=== PATIENT | female | born 1970 | race African-American/Black ===

== ENCOUNTER 2019-02-05 23:42 | Emergency (ER) | payer OTHER ==
[2019-02-05 23:51] VITALS: BMI 25.7
--- NOTE | 2019-02-06 00:01 | PDOC ---
History of Present Illness - General Chief Complaint: Blood Pressure Problem Stated Complaint: HYPERTENSION, BLURRED VISION Time Seen by Provider: 02/05/19 23:55 - History of Present Illness Initial Comments: 02/06/19 00:00 48 yo F with no significant pmh who p/w headache and congestion. Patient reports onset of dull, non radiating, persistent, pressure, bi-frontal headache , asx. with photphobia and visual disturbances beginning 02-02-19. No identifiable alleviators. Attempted OTC Iburporfen x 1. 1 episode of NBNB emesis yesterday following PO Motrin. Also endorses nasal congestion, non productive cough, subjective fevers, and diffuse chest pressure, with no identifiable alleviators beginning 02-02-19. Recently returned from [place] . Patient denies neck stiffness, palpitations,wheezing, orthopena, PND, leg swelling/pain, N/V, F,C, SOB, urinary complaints, hematuria, BPR, abdominal pain, diarrhea, constipation, lightheadedness, weakness, sensory changes. PMHx: as noted above ROS: as noted SHx: Denies Etoh, IVDA, tobacco use Allergies: NKDA Past History - Past Medical History Allergies/Adverse Reactions: Allergies Allergy/AdvReac Type Severity Reaction Status Date / Time No Known Allergies Allergy Verified 02/05/19 23:50 Home Medications: Ambulatory Orders Gabapentin 300 mg PO TID 02/06/19 - Suicide/Smoking/Psychosocial Hx Smoking History: Never smoked Have you smoked in the past 12 months: No Information on smoking cessation initiated: No Hx Alcohol Use: No Drug/Substance Use Hx: No Review of Systems - Review of Systems Comments:: 02/06/19 00:00 GENERAL/CONSTITUTIONAL: No fever or chills. No weakness. HEAD, EYES, EARS, NOSE AND THROAT: + change in vision. No ear pain or discharge. No sore throat. CARDIOVASCULAR:+chest pain. No shortness of breath RESPIRATORY: +cough. no wheezing, or hemoptysis. GASTROINTESTINAL: No nausea, vomiting, diarrhea or constipation. GENITOURINARY: No dysuria, frequency, or change in urination. MUSCULOSKELETAL: No joint or muscle swelling or pain. No neck or back pain. SKIN: No rash NEUROLOGIC: +headache. No vertigo, loss of consciousness, or change in strength/ sensation. ENDOCRINE: No increased thirst. No abnormal weight change HEMATOLOGIC/LYMPHATIC: No anemia, easy bleeding, or history of blood clots. ALLERGIC/IMMUNOLOGIC: No hives or skin allergy. *Physical Exam - Vital Signs Last Vital Signs Temp Pulse Resp BP Pulse Ox 111 H 20 182/100 H 98 02/05/19 23:50 02/05/19 23:50 02/05/19 23:50 02/05/19 23:50 - Physical Exam Comments: 02/06/19 00:00 GENERAL: Awake, alert, and fully oriented, in no acute distress HEAD: No signs of trauma, normocephalic, atraumatic EYES: PERRLA, EOMI, sclera anicteric, conjunctiva clear ENT: Auricles normal inspection, hearing grossly normal, nares patent, oropharynx clear without exudates. Moist mucosa NECK: Normal ROM, supple, no lymphadenopathy, JVD, or masses LUNGS: No distress, speaks full sentences, clear to auscultation bilaterally HEART: Regular rate and rhythm, normal S1 and S2, no murmurs, rubs or gallops, peripheral pulses normal and equal bilaterally. ABDOMEN: Soft, nontender, normoactive bowel sounds. No guarding, no rebound. No masses EXTREMITIES : Normal inspection, Normal range of motion, no edema. No clubbing or cyanosis. NEUROLOGICAL: Cranial nerves II through XII grossly intact. Normal speech, normal gait, no focal sensorimotor deficits SKIN: Warm, Dry, normal turgor, no rashes or lesions noted Moderate Sedation - Procedure Monitoring Vital Signs: Procedure Monitoring Vital Signs Temperature Pulse Rate 111 H 02/05/19 23:50 Respiratory Rate 20 02/05/19 23:50 Blood Pressure 182/100 H 02/05/19 23:50 O2 Sat by Pulse Oximetry (%) 98 02/05/19 23:50 ED Treatment Course - LABORATORY CBC & Chemistry Diagram: 02/06/19 00:42 02/06/19 00:42 - RADIOLOGY Radiology Studies Ordered: 02/06/19 02:38 Patient Information: : 1970 Order Type: Preliminary Name: JUSTUS SOLIS Sex: F Study Description: US ABDOMEN LIMITED Modality: US Location: [facility] Referring Physician: NOEL PAGE Comments: Venancio Minor MD wrote on Feb 06, 2019 at 02:29 AM: Referring Physician: NOEL PAGE Patient Name: WILL JEROME THIS IS A PRELIMINARY REPORT FROM [facility] DATE OF SERVICE: 2019-02-06 01:48:19 IMAGES: 50 EXAM: Right upper quadrant abdominal ultrasound HISTORY: Right upper quadrant pain and elevated liver enzymes COMPARISON: None. FINDINGS: Fatty liver. Normal size. Multiple small gallstones are noted. No gallbladder wall thickening or pericholecystic fluid. Normal common bile duct measuring 4 mm diameter. No right upper quadrant free fluid. No right hydronephrosis. No obvious abnormalities of the pancreas. Impression: CONFIDENTIALITY NOTICE: This information is intended only for the use of the recipient(s) named above. If you are not the intended recipient, or a person responsible for delivering it to the intended recipient, you are hereby notified that any disclosure, copying, distribution or use of any of the information contained in or attached to this transmission is STRICTLY PROHIBITED. If you have received this transmission in error, please immediately notify Imaging Clinical Documentation Clerk and destroy the original transmission and its attachments without saving them in any manner [address] [place] [address] [place] [address] Phone: [phone] Fax: Email: [email or web address]: [email or web address] Patient Information: : 1970 Order Type: Preliminary Name: JUSTUS SOLIS Sex: F Study Description: US ABDOMEN LIMITED Modality: US Location: [facility] Referring Physician: NOEL PAGE Fatty liver. Gallstones. THIS DOCUMENT HAS BEEN ELECTRONICALLY SIGNED Venancio Minor MD 02/06/2019 02:29 RIC Spence. Please call Imaging Clinical Documentation Clerk [phone] with questions. Venancio Minor MD Clinicians - Please contact Imaging Clinical Documentation Clerk with further questions at [phone]) Patients - Please contact your Ordering Provider with questions. Patient Information: : 1970 Order Type: Preliminary Name: JUSTUS SOLIS Sex: F Study Description: CT HEAD Modality: CT Location: [facility] Referring Physician: NOEL PAGE Comments: Venancio Minor MD wrote on Feb 06, 2019 at 02:32 AM: Referring Physician: NOEL PAGE Patient Name: WILL JEROME THIS IS A PRELIMINARY REPORT FROM [facility] DATE OF SERVICE: 2019-02-06 02:11:28 IMAGES: 172 EXAM: HEAD CT WITHOUT CONTRAST HISTORY: Headache COMPARISON: None. FINDINGS: No hemorrhage. No mass. No visible infarct. No hydrocephalus shift or herniation. Osseous structures are intact. There is mucosal thickening and some fluid in the right maxillary sinus. Mild mucosal thickening left maxillary sinus. Mucosal thickening in the ethmoids. CONFIDENTIALITY NOTICE: This information is intended only for the use of the recipient(s) named above. If you are not the intended recipient, or a person responsible for delivering it to the intended recipient, you are hereby notified that any disclosure, copying, distribution or use of any of the information contained in or attached to this transmission is STRICTLY PROHIBITED. If you have received this transmission in error, please immediately notify Imaging Clinical Documentation Clerk and destroy the original transmission and its attachments without saving them in any manner [address] [facility] [facility] [address] [place] [address] Phone: [phone] Fax: Email: [email or web address]: [email or web address] Patient Information: : 1970 Order Type: Preliminary Name: JUSTUS SOLIS Sex: F Study Description: CT HEAD Modality: CT Location: [facility] Referring Physician: NOEL PAGE Impression: No acute intracranial abnormalities. Mucosal thickening in the maxillary and bilateral ethmoid sinuses. Small amount of fluid in the right maxillary sinus. One or more of the following dose reduction techniques were used: automated exposure control, adjustment of the mA and/or kV according to patient size, use of iterative reconstructive technique. THIS DOCUMENT HAS BEEN ELECTRONICALLY SIGNED Medical Decision Making - Medical Decision Making 02/06/19 00:27 48 yo F with no significant pmh who p/w dull, bi-frontal headache, nasal congestion, non productive cough, subjective fevers, and diffuse chest pressure beginning 02-02-19. 1 episode of NBNB emesis yesterday.HR 111, BP 182/100, vitals otherwise wnl, AF temp 97.9 , A&Ox3. Physical exam unremarkable. Will evaluate for PNA, flu, meningitis. ED Course: EKG: NSR with nml interval duration and axis. Absent ELIO, STD. TWI V1-V2 02/06/19 02:09 Laboratory Tests 02/06/19 02/06/19 02/06/19 00:42 00:42 00:42 WBC 6.3 Hgb 12.9 Hct 37.3 Plt Count 285 Monocytes % 11.5 H Total Bilirubin 0.3 AST 119 H ALT 200 H Alkaline Phosphatase 164 H Influenza A (Rapid) Negative Influenza B (Rapid) Negative 02/06/19 02:39 CTH: No acute intracranial abnormalities. Mucosal thickening in the maxillary and bilateral ethmoid sinuses. Small amount of fluid in the right maxillary sinus. 02/06/19 02:40 RUQ U/S: fatty liver and gallstones 02/06/19 02:59 Stable for d/c with return precautions. *DC/Admit/Observation/Transfer Diagnosis at time of Disposition: Hypertension Qualifiers: Hypertension type: unspecified Qualified Code(s): I10 - Essential (primary) hypertension - Discharge Dispostion Condition at time of disposition: Stable - Referrals - Patient Instructions Printed Discharge Instructions: DI for High Blood Pressure Additional Instructions: Please return to the emergency department with any new or worsening symptoms or concerns. Please follow up with your primary care physician within 72 hours. - Post Discharge Activity Forms/Work/School Notes: Back to Work
[2019-02-06] MEDS ORDERED: METOCLOPRAMIDE HCL INJECTION 10 MG/2 ML VIAL IVPUSH ONE (00:21)
[2019-02-06] MEDS ORDERED: SODIUM CHLORIDE 1,000 ML IV STA (00:21)
[2019-02-06] MEDS ORDERED: METOCLOPRAMIDE HCL INJECTION 10 MG/2 ML VIAL ONE (00:47)
[2019-02-06 00:51] LABS: BASO % 0.3 % (0-2.0); EOS % 1.7 % (0-4.5); HEMATOCRIT 37.3 % (32.4-45.2); HEMOGLOBIN 12.9 GM/dL (10.7-15.3); LYMPH % 30.3 % (8-40); MCH 30.4 pg (25.7-33.7); MCHC 34.6 g/dl (32.0-36.0); MEAN CELL VOLUME 87.7 fl (80-96); MEAN PLT VOLUME 6.9 fl (7.5-11.1); MONO % 11.5 % (3.8-10.2); NEUT % 56.2 % (42.8-82.8); PLATELET COUNT 285 K/MM3 (134-434); RBC 4.26 M/mm3 (3.60-5.2); RDW 13.6 % (11.6-15.6); WHITE BLOOD COUNT 6.3 K/mm3 (4.0-10.0)
[2019-02-06 01:24] LABS: ALBUMIN 3.5 g/dl (3.4-5.0); ALK PHOS 164 U/L (45-117); ANION GAP 6 MMOL/L (8-16); BILIRUBIN,TOTAL 0.3 mg/dL (0.2-1); BLOOD UREA NITROGEN 8 mg/dL (7-18); CALCIUM 8.9 mg/dL (8.5-10.1); CHLORIDE 107 mmol/L (98-107); CO2 26 mmol/L (21-32); CREATININE 0.6 mg/dL (0.55-1.3); GLUCOSE,RANDOM 98 mg/dL (74-106); SGOT/AST 119 U/L (15-37); SGPT/ALT 200 U/L (13-61); SODIUM 139 mmol/L (136-145); TOT PROT 7.7 g/dl (6.4-8.2)
--- NOTE | 2019-02-06 01:55 | PDOC ---
Attending Attestation - Resident Resident Name: Darrel Collinsson - ED Attending Attestation I have performed the following: I have examined & evaluated the patient, The case was reviewed & discussed with the resident, I agree w/resident's findings & plan, Exceptions are as noted - HPI HPI: 02/06/19 01:52 48 F with no PMH presents to ED with headache and nasal congestion. Pt states that her headache started gradually 4 days ago. She endorses dull throbbing pain in her forehead bilaterally. SHe also endorses nasal congestion. Pt states that she had a fever 2 days ago of 102 and took motrin for it. She has not had a fever since. Pt denies neck pain. States that she had one episode of N/V but denies nausea now. Denies CP/SOB. Denies abdominal pain. - Physicial Exam PE: 02/06/19 01:54 GENERAL: Awake, alert, and fully oriented, in no acute distress. HEAD: No signs of trauma EYES: PERRLA, EOMI, sclera anicteric, conjunctiva clear ENT: Auricles normal inspection, hearing grossly normal, nares patent, oropharynx clear without exudates. Moist mucosa NECK: Nontender, no stepoffs, Normal ROM, supple, no lymphadenopathy, JVD, or masses LUNGS: Breath sounds equal, clear to auscultation bilaterally. No wheezes, and no crackles HEART: Regular rate and rhythm, normal S1 and S2, no murmurs, rubs or gallops ABDOMEN: Soft, nontender, normoactive bowel sounds. No guarding, no rebound. No masses EXTREMITIES: Normal range of motion, no edema. No clubbing or cyanosis. No cords, erythema, or tenderness NEUROLOGICAL: Cranial nerves II through XII intact. 5/5 strength and sensation in all extremities, Normal speech, normal gait, normal cerebellar function SKIN: Warm, Dry, normal turgor, no rashes or lesions noted. - Medical Decision Making 02/06/19 01:54 48 F with CASEY and nasal congestion. Likely sinus headache. Pt also hypertensive in ED with one episode of vomiting. Will obtain head CT to r/o intracranial process. - Labs, flu swab - CT head - IVF, pain control 02/06/19 03:03 Labs notable for transaminitis US negative for acute pathology CT head negative other than likely sinusitis Pt reassessed - now with complete resolution of symptoms Repeat vitals wnl Pt is well appearing, with normal vitals. Clinically stable for DC at this time. I discussed the physical exam findings, ancillary test results and final diagnoses with the patient. I answered all of the patient's questions. The patient was satisfied with the care received and felt comfortable with the discharge plan and treatment plan. The patient agrees to follow up with the primary care physician within 24-72 hours.
[2019-02-06 02:40] VITALS: BP 128/84; PULSE 89; TEMP 98.5
--- NOTE | 2019-02-06 23:48 | EKG ---
Test Reason : Blood Pressure : / mmHG Vent. Rate : 094 BPM Atrial Rate : 094 BPM P-R Int : 158 ms QRS Dur : 076 ms QT Int : 366 ms P-R-T Axes : 066 025 034 degrees QTc Int : 457 ms NORMAL SINUS RHYTHM SEPTAL INFARCT , AGE UNDETERMINED ABNORMAL ECG NO PREVIOUS ECGS AVAILABLE Confirmed by TIMBO WILD MD ([id number]) on 02/06/2019 11:48:09 PM Referred By: Confirmed By:TIMBO WILD MD
== END 2019-02-06 03:23 | disposition home or self-care (01) ==
LOC: JER 23:42
PROC: 3E033GC Introduction of Other Therapeutic Substance into Peripheral Vein, Percutaneous Approach (ICD-10-PCS; principal; 2019-02-05)
PROC: 3E033GC Introduction of Other Therapeutic Substance into Peripheral Vein, Percutaneous Approach (ICD-10-PCS; 2019-02-05)
DX: I10 Essential (primary) hypertension (principal)
CPT/HCPCS: 36415; 70450-TC; 71045-TC-FY; 76705-TC; 80053; 83690; 85025; 87804; 93005; 93010; 99281-25; J7030